=== PATIENT | female | born 1960 | race Two or more races ===

== ENCOUNTER 2018-06-06 18:51 | Emergency (ER) | payer OTHER ==
[~2018-06-06] VITALS: Ht 157.5 cm; Wt 82.0 kg
[2018-06-06] MEDS ORDERED: LORA2ORA5 PO (19:09)
[2018-06-06] MEDS ORDERED: EFEX1 PO (19:09)
[2018-06-06 23:23] VITALS: BP 156/81
== END 2018-06-06 23:37 | disposition home or self-care (01) ==
LOC: ER 18:51
DX: F41.9 Anxiety disorder, unspecified (principal); F32.9 Major depressive disorder, single episode, unspecified; Z88.1 Allergy status to other antibiotic agents; Z79.899 Other long term (current) drug therapy
CPT/HCPCS: 99283